=== PATIENT | male | born 1990 | race Caucasian/White ===

== ENCOUNTER 2016-12-25 20:34 | Emergency (ER) | payer BC ==
[2016-12-25] MEDS ORDERED: Sulfamethox/Trimethoprim DS 800/160* TAB PO ONE ×2 (21:23→21:56)
--- NOTE | 2016-12-25 22:01 | ED ---
Zuleyma Carmichael Anna, scribed for Magdy Yuen MD on 12/25/16 at 2119 . Skin Complaint - HPI Summary HPI Summary: Patient is a 26 y/o male coming to [facility] presenting with gradual onset of a constant abscess on his left buttocks that he noticed two days ago. The area is painful. He describes the severity of the pain as 6/10. Denies fever. - History of Current Complaint Chief Complaint: EDRashSkinAbscess Time Seen by Provider: 12/25/16 21:11 Stated Complaint: ABSCESS Hx Obtained From: Patient Onset/Duration: Started Days Ago, Still Present Pain Intensity: 6 - Allergy/Home Medications Allergies/Adverse Reactions: Allergies Allergy/AdvReac Type Severity Reaction Status Date / Time No Known Allergies Allergy Verified 12/25/16 20:43 PMH/Surg Hx/FS Hx/Imm Hx Previously Healthy: Yes Psychiatric History: Denies: Hx Anxiety Infectious Disease History: No Infectious Disease History: Denies: Traveled Outside the [place] in Last 30 Days - Family History Known Family History: Negative: Cardiac Disease, Diabetes - Social History Alcohol Use: Weekly Substance Use Type: Reports: None Smoking Status (MU): Never Smoked Tobacco Review of Systems Negative: Fever Positive: Other - abscess on left buttocks All Other Systems Reviewed And Are Negative: Yes Physical Exam Triage Information Reviewed: Yes Vital Signs On Initial Exam: Initial Vitals Temp Pulse Resp BP Pulse Ox 98.4 F 110 20 158/85 99 12/25/16 20:35 12/25/16 20:35 12/25/16 20:35 12/25/16 20:35 12/25/16 20:35 Vital Signs Reviewed: Yes Appearance: Positive: Well-Appearing, No Pain Distress Skin: Positive: Warm, Skin Color Reflects Adequate Perfusion, Dry, Other - Left buttock of the superior crease has an erythematous area of tender swelling. Head/Face: Positive: Normal Head/Face Inspection Eyes: Positive: EOMI, DUTCH ENT: Positive: Normal ENT inspection Neck: Positive: Supple, Nontender Respiratory/Lung Sounds: Positive: Clear to Auscultation, Breath Sounds Present Cardiovascular: Positive: RRR Abdomen Description: Positive: Nontender, Soft Bowel Sounds: Positive: Present Musculoskeletal: Positive: Normal, Strength/ROM Intact Neurological: Positive: Normal, Sensory/Motor Intact, Alert, Oriented to Person Place, Time Psychiatric: Positive: Affect/Mood Appropriate Procedures - Incision and Drainage Site: Left buttock of the superior crease Anesthesia: Lidocaine - 1% Instrument(s): Scalpel - #11 scalpel used after needle, Needle - #16 needle used prior to scalpel Packing: Gauze - 1/4 inch iodoform gauze Diagnostics - Vital Signs Vital Signs Temp Pulse Resp BP Pulse Ox 12/25/16 20:35 98.4 F 110 20 158/85 99 - Laboratory Lab Statement: Any lab studies that have been ordered have been reviewed, and results considered in the medical decision making process. Course/Dx - Course Assessment/Plan: Rx bactrim ds herbert bid x 10 days. Discharge home stable. - Diagnoses Provider Diagnoses: Pilonidal cyst with abscess Discharge - Discharge Plan Condition: Stable Disposition: HOME Prescriptions: Sulfamethox/Trimethoprim DS* [Bactrim DS 800/160 TAB*] 1 tab PO BID #18 tab Patient Education Materials: Pilonidal Cyst (GEN), Abscess (ED) Referrals: No Primary Care Phys,NOPCP [Primary Care Provider] - [facility] [Outside] Additional Instructions: FOLLOW UP WITH YOUR DOCTOR. RETURN TO THE EMERGENCY DEPARTMENT FOR ANY WORSENING OF YOUR CONDITION OR QUESTIONS OR CONCERNS. The documentation as recorded by the Zuleyma valdez Anna accurately reflects the service I personally performed and the decisions made by me, Magdy Yuen MD.
[2016-12-25 22:54] VITALS: BP 133/106
--- NOTE | 2016-12-30 12:21 | ED ---
Progress - Progress Note Progress Note: Pt's wound cx and sens returned from I&D of pilonidol cyst on 12/25/2016. Pt was placed on bactrim DS however organism does not appear to be sensitive to this antibiotic. Attempted to call pt to see if he's better from I&D alone - if so, may not need to add antibiotics. If not better or worse, will switch to anbx from sens list. TC and will mail letter as pt does not appear to have a PCP and was advised to f/u. Discussed with Carisa, forwarder operator. Course/Dx - Diagnoses Provider Diagnoses: Pilonidal cyst with abscess
== END 2016-12-25 22:54 | disposition home or self-care (01) ==
LOC: ED 20:34
DX: L05.01 Pilonidal cyst with abscess (principal)
CPT/HCPCS: 10080; 87070; 87076; 87077; 87184; 87186; 87205; 87640; 87641; 99282; A9270-GY